=== PATIENT | female | born 1950 | race Caucasian/White ===

== ENCOUNTER 2017-04-05 09:00 | Inpatient (IN) | payer MEDICARE, BC ==
[~2017-04-05] VITALS: Ht 152.4 cm; Wt 85.1 kg
--- NOTE | ~2017-04-05 | DS ---
PATIENT'S NAME: [facility] AGE: 66 Y [address] ROOM: [address] [address] LOCATION: [facility] ADMIT DATE: 04/11/2017 Discharge Summary DISCHARGE DATE: 04/13/2017 FAMILY PHYSICIAN: Mati Jiang MD ATTENDING PHYSICIAN: Lottie Laws PRIMARY DIAGNOSIS: Degenerative joint disease of the right knee. SECONDARY DIAGNOSES: 1. Hypertension. 2. Hyperlipidemia. PROCEDURE PERFORMED: Right total knee arthroplasty with computer navigation. HISTORY: The patient is a 66-year-old female, who presents with advanced right knee degenerative joint disease and associated severely compromised activities of daily living. The patient has decided to proceed with total knee arthroplasty after having been thoroughly counseled regarding the risks, benefits, limitations, and alternatives. Please refer to the outpatient clinic notes and admission history and physical for this patient. HOSPITAL COURSE: The patient underwent a right total knee arthroplasty on 04/11/2017 without complications. Spinal anesthesia plus adductor canal block plus periarticular local anesthesia was utilized. The patient received 24 hours of perioperative prophylactic antibiotics and remained hemodynamically stable, neurovascularly intact throughout the entire hospital course. The postoperative prophylactic deep venous thrombosis prophylaxis consisted of Xarelto 10 mg, early mobilization, and pneumatic compression devices. Daily physical therapy for gait training, transfer training, range of motion, and quadriceps isometric exercises were received. The patient progressed well in physical therapy. On the date of discharge, 04/13/2017, the incision at the knee was healing well and showed no signs of infection. DISPOSITION: Home. DISCHARGE ACTIVITY: The patient is to bear weight as tolerated with range of motion and quadriceps isometric exercises as instructed. The operative extremity is to be elevated at least 90% of the day. There is to be sterile 4x4 gauze dressings to the incision daily. Dr. Laws is to be notified immediately if there is any increased pain, fevers, chills, erythema, or drainage. DISCHARGE MEDICATIONS: Include, 1. Xarelto 10 mg, take 1 tablet p.o. daily for DVT prevention. 2. Dilaudid 2 mg, take 1 to 2 tablets p.o. every 4 hours as needed for pain. PATIENT'S NAME: [facility] AGE: 66 Y [address] ROOM: [address] [address] LOCATION: [facility] ADMIT DATE: 04/11/2017 Discharge Summary DISCHARGE DATE: 04/13/2017 FAMILY PHYSICIAN: Mati Jiang MD ATTENDING PHYSICIAN: Lottie Laws FOLLOWUP: Followup date is scheduled for 04/18/2017 for initial postoperative evaluation and x-rays at that time. DARIELA MANUEL FOR LOTTIE LAWS MD TLB/modl /[id number] d: 04/21/17 0223 t: 05/27/17 0750, DISCHARGE SUMMARY
--- NOTE | ~2017-04-05 | DS ---
PATIENT'S NAME: BENITEZ EVANS [facility] AGE: 66 Y [address] ROOM: [place] [address] LOCATION: [facility] ADMIT DATE: 04/11/2017 Discharge Summary DISCHARGE DATE: 04/13/2017 FAMILY PHYSICIAN: Mati Jiang MD ATTENDING PHYSICIAN: Lottie Laws PRIMARY DIAGNOSIS: Degenerative joint disease of the right knee. SECONDARY DIAGNOSES: 1. Hypertension. 2. Hyperlipidemia. PROCEDURE PERFORMED: Right total knee arthroplasty with computer navigation. HISTORY: The patient is a 66-year-old female, who presents with advanced right knee degenerative joint disease and associated severely compromised activities of daily living. The patient has decided to proceed with total knee arthroplasty after having been thoroughly counseled regarding the risks, benefits, limitations, and alternatives. Please refer to the outpatient clinic notes and admission history and physical for this patient. HOSPITAL COURSE: The patient underwent a right total knee arthroplasty on 04/11/2017 without complications. Spinal anesthesia plus adductor canal block with periarticular local anesthesia was utilized. The patient received 24 hours of perioperative prophylactic antibiotics and remained hemodynamically stable, neurovascularly intact throughout the entire hospital course. The postoperative prophylactic deep venous thrombosis prophylaxis consisted of Xarelto, early mobilization and pneumatic compression devices. Daily physical therapy for gait training, transfer training range of motion and quadriceps isometric exercises were received. The patient progressed well in physical therapy. On the date of discharge, 04/13/2017, the incision at the knee was healing well and showed no signs of infection. DISPOSITION: Home. DISCHARGE ACTIVITY: The patient is to bear weight as tolerated with range of motion and quadriceps isometric exercises as instructed. The operative extremity is to be elevated at least 90% of the day. There is to be sterile 4x4 gauze dressings to the incision daily. Dr. Laws is to be notified immediately if there is any increased pain, fevers, chills, erythema, or drainage. DISCHARGE MEDICATIONS: Include, 1. Xarelto 10 mg, take 1 tablet p.o. daily for DVT prevention. 2. Dilaudid 2 mg, take 1 to 2 tablets p.o. every 4 hours as needed for pain. PATIENT'S NAME: BENITEZ EVANS [facility] AGE: 66 Y [address] ROOM: [place] [address] LOCATION: [facility] ADMIT DATE: 04/11/2017 Discharge Summary DISCHARGE DATE: 04/13/2017 FAMILY PHYSICIAN: Mati Jiang MD ATTENDING PHYSICIAN: Ltotie Laws FOLLOWUP: Followup date is scheduled for 04/18/2017 for initial postoperative evaluation and x-rays at that time. DARIELA MANUEL FOR LOTTIE LAWS MD TLB/modl /[id number] d: 05/07/17 0935 t: 05/27/17 0752, DISCHARGE SUMMARY
--- NOTE | ~2017-04-05 | OR ---
PATIENT'S NAME: [facility]Z [facility] AGE: 66 Y [address] ROOM: [place] [address] LOCATION: [facility] ADMIT DATE: 04/11/2017 OR/Procedure Report DISCHARGE DATE: FAMILY PHYSICIAN: Mati Jiang MD ATTENDING PHYSICIAN: LOTTIE LAWS SURGEON: Lottie Laws MD PROJECTION TECHNICIAN: 1. DARIELA Ramos. 2. Jeffry Anaya CST/COMMERCIAL SALES DIRECTOR. DATE OF PROCEDURE: 04/11/2017 PRE-OP DIAGNOSIS: Degenerative joint disease right knee. POST-OP DIAGNOSIS: Degenerative joint disease right knee. OPERATION: Right total knee arthroplasty with computer navigation. ANESTHESIA: Spinal anesthesia plus adductor canal block plus periarticular local anesthesia (ropivacaine with epinephrine and Toradol). ESTIMATED BLOOD LOSS: Less than 10 cubic centimeters. DRAIN: None. SPECIMEN: None. COMPLICATIONS: None. IMPLANT SYSTEM: Jeanie Triathlon. Size 4 right posterior stabilized femoral component Size 3 universal modular tibial baseplate 16 mm posterior stabilized size 3 X3 tibial polyethylene insert 29 mm Oval X3 patella component (triple pegged). INDICATIONS FOR SURGERY: The patient is a 66-year-old female, who presents with advanced right knee degenerative joint disease and associated severely compromised activities of daily living. The patient has decided to proceed with knee replacement after having been thoroughly counseled regarding the associated risks, benefits, and limitations. We have specifically reviewed the risks and implications of infection, deep venous thrombosis, pulmonary embolism, mortality, neurovascular complications, blood transfusion (and associated potential for disease transmission or transfusion reaction), stiffness, instability, mechanical deterioration of the components (due to wear and or loosening), and the potential need for revision. We have also emphasized the importance of active involvement and compliance with post- operative physical therapy as a means of optimizing range of motion and PATIENT'S NAME: BENITEZ EVANS [facility] AGE: 66 Y [address] ROOM: [address] [address] LOCATION: [facility] ADMIT DATE: 04/11/2017 OR/Procedure Report DISCHARGE DATE: FAMILY PHYSICIAN: Mati Jiang MD ATTENDING PHYSICIAN: LOTTIE LAWS functional recovery. Informed consent has been granted. DESCRIPTION OF PROCEDURE: The patient was positioned supine after administration of anesthesia and prophylactic antibiotics. A well-padded pneumatic tourniquet was placed around the right proximal thigh, and the right lower extremity was prepped and draped with vigilant sterile technique. The patient's name as well as the intended operative side and procedure were confirmed with a verbal time-out involving myself, the circulating nurse, the scrub nurse, and the anesthesiologist. Examination under anesthesia demonstrated no active skin lesions or masses. There was a mild effusion. There was no erythema. There was no abnormal warmth. There was no deformity. Range of motion was under anesthesia was from full extension to 130 degrees of flexion. There was no ligamentous insufficiency. The right lower extremity was elevated and exsanguinated with an Esmarch wrap, and the pneumatic tourniquet was inflated to 300mmHg. The knee was approached through a longitudinal midline incision. A medial parapatellar arthrotomy was performed and the patella was everted. Examination of the joint space demonstrated a moderate amount of benign-appearing translucent synovial fluid. The cruciate ligaments were intact. There were no loose bodies. There was no synovitis. There was full-thickness loss of articular cartilage involving the entire medial femoral condyle and 90% of the medial tibial plateau. There was a large osteophyte at the medial femoral condyle. There were very large osteophytes at the medial and lateral margins of the femoral trochlea. There was a 1 cm diameter ganglion cyst at the medial half of the patellar tendon. This was excised. There was moderate chondrocalcinosis at the patella. There was moderate grade 3 chondromalacia throughout the lateral facet of the patella. There was a 1 cm diameter region of full-thickness articular cartilage loss at the central aspect of the femoral trochlea. There was a 1 cm diameter region of full-thickness articular cartilage loss at the medial aspect of the lateral tibial plateau as well. There was a small osteophyte at the lateral tibial plateau. There were mild grade 3 degenerative changes involving a 2 cm diameter region at the lateral femoral condyle. There was mild chondrocalcinosis at the lateral femoral condyle. There was extensive chondrocalcinosis at the medial meniscus and mild chondrocalcinosis at the lateral meniscus. There was extensive degenerative tearing of the medial and lateral menisci. Remnants of the menisci and cruciate ligaments were excised. The [employer] navigation femoral tracker was pinned in place at the distal aspect of the femoral trochlea. Absence of motion between the femur and the tracking device was confirmed manually and visually. Femoral osseous landmarks were PATIENT'S NAME: [facility]Z [facility] AGE: 66 Y [address] ROOM: [id number] [place], [place] [address] LOCATION: [facility] ADMIT DATE: 04/11/2017 OR/Procedure Report DISCHARGE DATE: FAMILY PHYSICIAN: Mati Jiang MD ATTENDING PHYSICIAN: LOTTIE LAWS in order to calibrate the computer navigation system. Landmarks included the center of rotation of the ipsilateral hip, the center-point of the distal femur, the femoral AP axis, 57 points on the medial femoral condyle articular surface, and 57 points on the lateral femoral condyle articular surface. The 1234ENTER computer navigation system was subsequently utilized to position the distal femoral resection block such that the distal femoral resection was performed perfectly perpendicular to the femoral mechanical axis. The distal femoral resection was performed with a [employer] oscillating saw. The 1234ENTER computer navigation tibial tracker was pinned in place at the anterior aspect of the tibial plateau. Absence of motion between the tibia and the tracking device was confirmed manually and visually. Tibial osseous landmarks were obtained in order to calibrate the computer navigation system. Landmarks included the center-point of the tibial plateau, the AP tibial axis, 57 points on the medial tibial plateau articular surface, 57 points on the lateral tibial plateau articular surface, the medial malleolus, and the lateral malleolus. The 1234ENTER computer navigation system was subsequently utilized to position the proximal tibial resection block such that the proximal tibial resection was performed perfectly perpendicular to the tibial mechanical axis. The proximal tibial resection was performed with a [employer] oscillating saw. Perpendicularity of the tibial resection with respect to the tibial shaft axis was reconfirmed by inserting a spacer- block attached to an extramedullary guide naga. External rotation of the anterior and posterior femoral resections was set parallel to the epicondylar axis and carefully adjusted in order to create a rectangular flexion gap. The box resection was performed with a reciprocating saw. Anterior and posterior chamfer resections were performed with the oscillating saw. Posterior condyle osteophytes were excised with an osteotome. All other osteophytes were excised with a rongeur. Resection of all remnants of the menisci was reconfirmed. Flexion and extension gaps were confirmed to be symmetric and well balanced with a spacer-block technique. The patella resection was performed with an oscillating saw such that the composite thickness of the reconstructed patella was equivalent to the thickness of the washoe patella. Patella tracking was optimal and there was no need for a lateral retinacular release. All trial components were removed and all prepared osseous surfaces were thoroughly irrigated with pulsatile saline lavage and dried prior to cementing all three components in a single stage using Jeanie Simplex cement containing pre-mixed tobramycin. All extruded excess cement was removed. The entire joint space was thoroughly inspected and thoroughly irrigated with bacteriostatic pulsatile saline lavage to assure that there was no residual PATIENT'S NAME: [facility]ITEZ [facility] AGE: 66 Y [address] ROOM: [address] [address] LOCATION: [facility] ADMIT DATE: 04/11/2017 OR/Procedure Report DISCHARGE DATE: FAMILY PHYSICIAN: Mati Jiang MD ATTENDING PHYSICIAN: LOTTIE LAWS debris of any sort. Final range of motion was from full extension (with no passive hyperextension) to 130 degrees of flexion. Patella tracking was reconfirmed to be optimal. There was very good anteroposterior stability at 90 degrees of flexion. There was less than 1 mm of medial lift-off to valgus stress in full extension. There was 1 mm of lateral lift-off to varus stress in full extension. The arthrotomy was closed with multiple simple and [id number] interrupted #1 Vicryl. Subcutaneous tissues were thoroughly re-irrigated with bacteriostatic pulsatile saline lavage. Subcutaneous tissues were re- approximated with simple buried interrupted #0 Vicryl sutures. The skin was closed with simple buried interrupted 2-0 Vicryl sutures followed by surgical josue. The dressing consisted of Xeroform gauze, 4x4 gauze, ABD pads and two 6-inch Morgan Wraps. There were no intra-operative complications. It should be noted that the physician's assistant production editor played an active, integral role throughout this entire operation. By providing expert retraction, they greatly facilitated and expedited safe and effective exposure of the distal femur, proximal tibia and patella for preparation and implantation of the components. They were also actively involved in the patient's positioning, prepping and draping, as well as wound closure. MD HUNTER ARAGON/jodie /[id number] d: 04/11/172147 t: 04/24/172140, OPERATIVE SUMMARY
[2017-04-05] MEDS ORDERED: MOBIC7.5 MG PO (14:47)
[2017-04-05] MEDS ORDERED: COZAAR50 MG PO (14:48)
[2017-04-05] MEDS ORDERED: LOVASTATIN40 MG PO (14:48)
[2017-04-05] MEDS ORDERED: ULTRAM50 MG PO (14:49)
[2017-04-05] MEDS ORDERED: MICROZIDE12.5 MG PO (14:49)
[2017-04-05] MEDS ORDERED: TYLENOL EXTRA500 MG PO (14:50)
[2017-04-05] MEDS ORDERED: TRIACET 0.1 CRE15 GM TOP (14:51)
[2017-04-13] MEDS ORDERED: COLACE100 MG PO (09:41)
[2017-04-13] MEDS ORDERED: MIRALAX17 GM PO (09:45)
[2017-04-13] MEDS ORDERED: XARELTO10 MG PO (09:46)
[2017-04-13] MEDS ORDERED: DILAUDID 2MG(HYD2 MG PO (09:49)
== END 2017-04-13 16:10 | disposition disaster alternative care site (69) | DRG 470 ==
LOC: G3N 04-11 07:29
PROVIDERS: ADMIT Orthopaedic Surgery
PROC: 0SRC0J9 Replacement of Right Knee Joint with Synthetic Substitute, Cemented, Open Approach (ICD-10-PCS; principal; 2017-04-11)
PROC: 8E0YXBZ Computer Assisted Procedure of Lower Extremity (ICD-10-PCS; principal; 2017-04-11)
DX: M17.11 Unilateral primary osteoarthritis, right knee (principal); I10 Essential (primary) hypertension; E78.5 Hyperlipidemia, unspecified; Z79.899 Other long term (current) drug therapy; Z86.010 Personal history of colon polyps; R29.6 Repeated falls; Z87.891 Personal history of nicotine dependence; Z96.652 Presence of left artificial knee joint
CPT/HCPCS: C1713; C1776; J1100; J1170; J1885; J2001; J2250; J2405; J2795; J7050; J7120

== ENCOUNTER → 2017-04-07 | Outpatient (CLI) | payer MEDICARE, BC ==
[~2017-04-07] MED LIST: COLACE100 MG PO; COZAAR50 MG PO; DILAUDID 2MG(HYD2 MG PO; LOVASTATIN40 MG PO; MICROZIDE12.5 MG PO; MIRALAX17 GM PO; MOBIC7.5 MG PO; TRIACET 0.1 CRE15 GM TOP; TYLENOL EXTRA500 MG PO; ULTRAM50 MG PO; XARELTO10 MG PO
== END | disposition disaster alternative care site (69) ==
LOC: GNJRC 10:18
DX: M17.11 Unilateral primary osteoarthritis, right knee (principal)